=== PATIENT | female | born 1975 | race Caucasian/White ===

== ENCOUNTER → 2023-06-11 15:10 | Outpatient (REF) | payer MEDICARE, OTHER, SELFPAY | LOC: RAD 15:10 | PROVIDERS: ATTENDING PHYSICIAN Physician Assistant | DX: R05.1 Acute cough (principal) | CPT/HCPCS: 71046 ==

== ENCOUNTER → 2023-12-09 12:47 | Outpatient (REF) | payer MEDICARE, OTHER, SELFPAY | LOC: HWRAD 12:47 | PROVIDERS: ATTENDING PHYSICIAN Internal Medicine Critical Care Medicine; FAMILY PHYSICIAN Family Medicine | DX: R79.89 Other specified abnormal findings of blood chemistry (principal) | CPT/HCPCS: 71275; Q9967 ==

== ENCOUNTER → 2023-12-10 18:17 | Outpatient (REF) | payer MEDICARE, OTHER, SELFPAY | LOC: RCS 18:17 | PROVIDERS: ATTENDING PHYSICIAN Internal Medicine Critical Care Medicine; FAMILY PHYSICIAN Family Medicine | DX: R06.02 Shortness of breath (principal) | CPT/HCPCS: 93306 ==

== ENCOUNTER 2024-12-28 10:52 | Emergency (ER) | payer MEDICARE, OTHER, SELFPAY ==
[2024-12-28 10:54] VITALS: BP 161/99
--- NOTE | 2024-12-28 11:05 | EDRN ---
This RN assumed care of pt at this time.
--- NOTE | 2024-12-28 11:27 | EDRN ---
James NOEL in room w/ pt at this time.
[2024-12-28 11:39] VITALS: BMI 33.7
--- NOTE | 2024-12-28 11:41 | ED.GENMED ---
History of Present Illness
General
Chief Complaint: Musculo-Skeletal Complaint
Source: patient
Exam Limitations: none
Time Seen by Provider: 12/28/24 11:26
History of Present Illness
History of Present Illness:
49yoF with a history of migraines and depression presenting for evaluation of neck pain. Patient has been experiencing right sided neck pain for about 1.5 months. Symptoms began while she was at an inpatient psychiatric stay. She received ECT
treatments during her hospitalization. She started to experience 'nerve pain' down her right arm over the past several weeks. Pain is worse with movement of her neck. She was prescribed baclofen by her psychiatry team which has not been helpful.
She initially tried stretching, ice, and ibuprofen but stopped this because it did not help. She previously has seen a radiation control specialist for steroid injections into the neck. She called her spine team and was told to go to the ED for evaluation.
She denies any fevers or chills.
Past History
Past History
ED Past Medical History: Other (Depression, nonepileptic seizures (pseudoseizures))
ED Past Surgical History:
Social History
Tobacco: Non-smoker
Alcohol: None
Living: with family
Family History
Family History: Negative Diabetes, Hypertension or CAD
Phy Exam
General Physical Exam
General Presentation: well appearing and no apparent distress
General Skin: warm and dry
General Habitus: normal
General Mental: alert
ENT Exam
ENT Exam: normocephalic and other (+Tenderness along cervical portion of R trapezius muscle. ROM of cervical spine normal. No nuchal rigidity. )
Cardiovascular Exam
Cardiovascular Exam: normal peripheral pulses (2+ radial pulses bilaterally)
Pulmonary Exam
Pulmonary Exam: no respiratory distress
Neurological Exam
Neurological Exam: alert and no motor deficits (5/5 strength in bilateral upper extremities)
[place] Coma Scale
Eye Opening: Spontaneous
Verbal Response: Oriented
Motor Response: Obeys Commands
GCS Total Score: 15
Skin Exam
Skin Exam: normal color and warm/dry
Psychiatric Exam
Psychiatric Exam: normal mood/affect
Course
Orders/Labs/Results
Orders:
Orders
12/28/24 11:37
CT Cervical Spine W/o Iv Contr Urgent
Comment:
Reason For Exam: R sided neck pain radiating down arm
Ketorolac [Toradol] 30 mg IM NOW STA
Vital Signs
Initial and Last Documented VS:
Initial Vital Signs
Temp Pulse Resp BP Pulse Ox
98.4 F 97 18 161/99 99
12/28/24 10:54 12/28/24 10:54 12/28/24 10:54 12/28/24 10:54 12/28/24 10:54
Last Documented Vital Signs
Temp Pulse Resp BP Pulse Ox
98.4 F 75 16 118/70 98
12/28/24 10:54 12/28/24 14:30 12/28/24 14:30 12/28/24 14:30 12/28/24 14:30
MDM/Problems Addressed
Differential Diagnosis Includes:
49yoF here with R sided neck pain for >1 month. Radiating down R arm for several weeks. Worse with movement. She has previously required steroid injections for neck issues. No associated fever or neck stiffness. Longevity of symptoms also makes
meningitis extremely unlikely. There is reproducible muscular tenderness on exam. Upper extremities are neurovascularly intact. Differential diagnosis includes: muscular strain, cervical radiculopathy
IM Toradol given for pain. CT cervical spine obtained which shows degenerative changes without acute abnormality. No discrete herniation or central canal stenosis appreciated. Will trial course of prednisone. She has an appt with her spine
specialist scheduled in 6 days. Patient discharged in stable condition.
*Pulse Oximetry
SaO2: 99
Oxygen Mode of Delivery: Room air
Patient hypoxic: no
*Critical Care Note
Total Time (30-74mins, 75-104mins- exclusive of procedures): Not Applicable
ED Attending Note
-
Portions of this chart may have been created with voice recognition software.� Occasional wrong word or��sound alike� substitutions may have occurred due to the inherent limitations of voice recognition software.
Discharge Plan
Departure
Patient Disposition: Home (Routine Discharge)
Date of Disposition: 12/28/24
Time of Disposition: 14:35
Patient with high blood pressure during this ER visit?: No
Discharge Problem:
Neck pain on right side
Instructions: Neck pain - ED (DC)
Prescriptions:
New
prednisone 50 mg tablet
50 mg PO DAILY Qty: 5 0RF
No Action
tranylcypromine 10 MG tablet
20 mg PO QPM
tranylcypromine 10 MG tablet
30 mg PO DAILY
clonazepam 1 MG tablet
1.5 mg PO .[email or web address],NIGHT
Patient Comments:
05/08/2021: last filled 04/15/21, 120 tabs for 30 days from [facility]
clonazepam 1 MG tablet
1 mg PO DAILY
Patient Comments:
05/08/2021: last filled 04/15/21, 120 tabs for 30 days from [facility]
magnesium oxide 400 MG capsule
400 mg PO QPM
divalproex 250 mg Tablet Extended Release 24 Hr
250 mg PO BID
Ubrelvy
1 dose PO PRN PRN (Reason: migraines)
lorazepam 1 mg Tablet
1 mg PO DAILY PRN (Reason: anxiety)
Referrals:
Tegan Romeo CRNP [Family Provider, Family Practice]
Activity Restrictions/Additional Instructions:
Take prednisone as prescribed. Apply heat to affected area and use lidocaine patches daily (12 hours on, 12 hours off). You may also take Tylenol and ibuprofen as needed.
Please follow-up with your radiation control specialist and family doctor. Return to the ER with any new or worsening symptoms.
Interventions
Interventions:
*Risk Screen - Suicide Last Done: 12/28/24 10:54
*General Assessment Last Done: 12/28/24 11:39
*Neglect/Abuse Screening Last Done: 12/28/24 10:54
*ED- Fall Risk Assessment Last Done: 12/28/24 11:39
*ED COVID-19 Vaccine History Last Done: 12/28/24 11:39
*Nursing Disposition Last Done: 12/28/24 15:02
ED-Musculoskeletal Assessment Last Done: 12/28/24 11:39
Discharge Date and Time
Discharge Date/Time: 12/28/24 15:03
Print Language: BELARUSIAN
[2024-12-28] MEDS: TORADOL 30 MG IM (11:47)
[2024-12-28 12:14] VITALS: BP 111/76
[2024-12-28 14:30] VITALS: BP 118/70
--- NOTE | 2024-12-28 14:37 | EDRN ---
James Logan PA in to see ptModesta
== END 2024-12-28 15:03 | disposition home or self-care (01) ==
LOC: EMR 10:52
PROVIDERS: EMERGENCY PHYSICIAN Emergency Medicine; FAMILY PHYSICIAN Nurse Practitioner Family
DX: M54.2 Cervicalgia (principal); M79.2 Neuralgia and neuritis, unspecified
CPT/HCPCS: 96372; 99284; 72125